=== PATIENT | female | born 2000 ===

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

== ENCOUNTER 2018-06-13 16:03 | Emergency (ER) | payer OTHER ==
[~2018-06-13] VITALS: Ht 167.6 cm; Wt 104.3 kg
== END 2018-06-13 20:02 | disposition home or self-care (01) ==
LOC: ER 16:03
DX: K29.70 Gastritis, unspecified, without bleeding (principal)

== ENCOUNTER 2018-09-28 15:37 | Emergency (ER) | payer OTHER ==
[~2018-09-28] VITALS: Ht 167.6 cm; Wt 99.8 kg
[2018-09-28] MEDS ORDERED: ADDERALL 10 MG10 MG PO (16:31)
== END 2018-09-28 20:24 | disposition home or self-care (01) ==
LOC: ER 15:37
DX: R51 Headache (principal); M54.2 Cervicalgia

== ENCOUNTER 2022-02-11 13:08 | Outpatient (CLI) | payer OTHER ==
[~2022-02-11 13:08] MED LIST: ADDERALL 10 MG10 MG PO
== END 2022-02-11 13:32 | disposition home or self-care (01) ==
LOC: RAD 13:08
DX: M25.562 Pain in left knee (principal); M54.2 Cervicalgia; M54.6 Pain in thoracic spine; M54.51 Vertebrogenic low back pain

== ENCOUNTER 2023-08-31 09:34 | Outpatient (CLI) | payer OTHER | END 2023-08-31 09:40 | disposition home or self-care (01) | LOC: RAD 09:34 | PROVIDERS: ATTEND Internal Medicine Cardiovascular Disease | DX: J44.9 Chronic obstructive pulmonary disease, unspecified (principal); J11.1 Influenza due to unidentified influenza virus with other respiratory manifestations ==